=== PATIENT | male | born 1970 | race Caucasian/White ===

== ENCOUNTER 2024-04-30 09:05 | Outpatient (CLI) | payer MEDICAID, OTHER | END 2024-04-30 23:59 | disposition critical access hospital (66) | LOC: EMS 09:05 | DX: R46.4 Slowness and poor responsiveness (principal); R53.83 Other fatigue; R45.1 Restlessness and agitation | CPT/HCPCS: A0425; A0427; A0999 ==

== ENCOUNTER 2024-04-30 09:29 | Emergency (ER) | payer BC, MEDICAID, OTHER ==
[2024-04-30] MEDS ORDERED: DROPERIDOL 5 MG/2 ML VIAL IM STA (09:40)
[2024-04-30] MEDS: DROPERIDOL 5 MG/2 ML VIAL IM STA (09:44)
[2024-04-30] MEDS: LORazepam 2 MG/ML VIAL IM STA (09:44)
[2024-04-30] MEDS: LORazepam 2 MG/ML VIAL IVP STA (09:55)
[2024-04-30] MEDS: DROPERIDOL 5 MG/2 ML VIAL IVP STA (09:55)
[2024-04-30 10:23] LABS: BASOPHILS % (AUTO) 0.1 %; HGB - HEMOGLOBIN 15.9 g/dL (14.0-18.0); LYMPHOCYTES # (AUTO) 0.8 10^3/uL (1.5-3.5); LYMPHOCYTES % (AUTO) 11.7 %; MEAN CORPUSCULAR HGB CONC 33.8 g/dL (32.0-36.0); MEAN CORPUSCULAR VOLUME 91.6 fL (80.0-94.0); MEAN PLATELET VOLUME 9.6 fL (7.4-11.4); MONOCYTES # (AUTO) 0.3 10^3/uL (0.0-1.0); MONOCYTES % (AUTO) 4.6 %; NEUTROPHILS % (AUTO) 83.2 %; PLT - PLATELET COUNT 251 10^3/uL (130-450); RED BLOOD COUNT 5.13 10^6/uL (4.70-6.10); RED CELL DISTRIBUTION WIDTH 12.8 % (12.0-15.0); WHITE BLOOD COUNT 7.2 x10^3/uL (4.8-10.8)
[2024-04-30 10:41] LABS: ALBUMIN 4.5 g/dL (3.2-5.5); ALBUMIN/GLOBULIN RATIO 1.7 (1.0-2.2); ALKALINE PHOSPHATASE 105 IU/L (42-121); ALT ALANINE AMINOTRANSFERASE 20 IU/L (10-60); AST ASPARTATE AMINOTRANSFERASE 20 IU/L (10-42); BILIRUBIN,TOTAL 0.6 mg/dL (0.2-1.0); BUN - BLOOD UREA NITROGEN 16 mg/dL (6-20); CALCIUM 9.9 mg/dL (8.5-10.3); CARBON DIOXIDE - CO2 26 mmol/L (21-32); CHLORIDE 107 mmol/L (101-111); ETOH - ETHANOL < 10.0 mg/dL; GFR - MDRD 78 (>89); GLUCOSE 174 mg/dL (74-104); LIPASE 27 U/L (11-82); POTASSIUM 4.2 mmol/L (3.5-4.5); SODIUM 142 mmol/L (135-145); TOTAL PROTEIN 7.2 g/dL (6.4-8.9)
[2024-04-30 10:49] LABS: AMPHETAMINE SCREEN,URINE NEGATIVE (NEGATIVE); BARBITURATE SCREEN,UR NEGATIVE (NEGATIVE); BENZODIAZEPINES SCREEN, URINE NEGATIVE (NEGATIVE); BUPRENORPHINE SCREEN, URINE NEGATIVE (NEGATIVE); COCAINE SCREEN URINE POSITIVE (NEGATIVE); METHADONE SCREEN, URINE NEGATIVE (NEGATIVE); METHAMPHETAMINES SCREEN, URINE POSITIVE (NEGATIVE); OPIATE SCREEN, URINE NEGATIVE (NEGATIVE); OXYCODONE SCREEN, URINE NEGATIVE (NEGATIVE); THC CANNABINOID SCREEN, URINE POSITIVE (NEGATIVE); TRICYCLIC ANTIDEPRESSANT,URINE NEGATIVE (NEGATIVE)
--- NOTE | 2024-04-30 11:41 | CT Report ---
PROCEDURE: Head WO INDICATIONS: delirium/ALOC TECHNIQUE: Noncontrast 4.5 mm thick angled axial sections acquired from the foramen magnum to the vertex. For r adiation dose reduction, the following was used: automated exposure control, adjustment of mA and/or kV according to patient size. COMPARISON: None. FINDINGS: Image quality: Motion degraded CSF spaces: Basal cisterns are patent. Lateral ventricles are symmetric. Volume: Mild volume loss Brain: No large hematoma. No gross loss of nassar-white differentiation Craniofacial structures: No significant paranasal sinus opacity IMPRESSION: There is significant motion artifact. There is no large hematoma or obvious brain tissue herniation. Reviewed by: Naga Waller MD on 04/30/2024 11:39 AM PDT Approved by: Naga Waller MD on 04/30/2024 11:39 AM PDT Station ID: [id number]
[2024-04-30] MEDS: ONDANSETRON 4 MG/2 ML VIAL IVP STA (12:11)
[2024-04-30] MEDS: SODIUM CHLORIDE 0.9% 1,000 ML IV STA (12:11)
--- NOTE | 2024-04-30 15:01 | ED Physician Documentation ---
ED Addendum - Addendum Addendum: 04/30/24 14:[address] Chawla at 3pm shift change. See her note for H/p. Briefly was unresponsive and now improving with ++UDS. He is sleeping now, but easily arousable, but can only answer 1-2 questions before falling back asleep. I was able to ask him if he wants to see [employer] and he declines. 04/30/24 17:50 Still somnolent but easier to arouse at this point. Supportive sister at the bedside who intends to take him home with her. I discussed with patient my intention to have the nurse get him up and ambulate him to see how steady he was and he says he does not want to. 04/30/24 18:08 He was ambulatory without issue per the RN counseled not to use drugs. Disposition: Discharged home Condition: Stable Diagnosis: 1. Drug overdose 2. Drug-induced delirium
--- NOTE | 2024-04-30 15:13 | ED Physician Documentation ---
History of Present Illness - Stated complaint Stated Complaint: ALOC - Chief complaint Chief Complaint: Neuro - History obtained from History obtained from: EMS - Additonal information Additional information: The patient is brought to the emergency department by EMS for chief complaint of altered level of consciousness. The patient was found by his roommate this morning to be unresponsive and called EMS. When EMS arrived, the patient was indeed unresponsive, though he was hemodynamically stable. They gave Narcan and the patient did awaken but was not alert or conversant. Medics state the ana ent did begin vomiting after receiving Narcan, but this was right before arriving here so they have not given him anything for this. They state that they remain without able to offer any information with regard to what the patient might of taken or why he might be altered. The patient has not been to our ED since 2015. He is unable to offer any information at this time. PD PAST MEDICAL HISTORY - Past Medical History Psych: Depression, Anxiety, ADD/ADHD - Past Surgical History Past Surgical History: Yes - Present Medications Home Medications: Ambulatory Orders Medication Instructions Recorded Confirmed ALPRAZolam [Alprazolam] 0.25 tab PO 01/03/15 01/03/15 DULoxetine [Cymbalta] 1 cap PO DAILY 01/03/15 01/03/15 Dextroamphetamine/Amphetamine 10 mg PO DAILY 01/03/15 01/03/15 [Adderall Xr 10 mg Capsule] - Allergies Allergies/Adverse Reactions: Allergies Allergy/AdvReac Type Severity Reaction Status Date / Time No Known Drug Allergies Allergy Verified 01/03/15 16:17 - Social History Does the pt smoke?: No Smoking Status: Never smoker Does the pt drink ETOH?: Yes Does the pt have substance abuse?: No - Immunizations Immunizations are current?: Yes PD ED PE NORMAL - Vitals Vital signs reviewed: Yes - General General: Well developed/nourished, Other (Patient appears delirious.) - HEENT HEENT: Atraumatic, PERRL, Moist mucous membranes - Neck Neck: Supple, no meningeal sign - Cardiac Cardiac: RRR, No murmur - Respiratory Respiratory: No respiratory distress, Clear bilaterally - Abdomen Abdomen: Soft, Non distended - Derm Derm: Normal color, Warm and dry, No rash - Extremities Extremities: No deformity, No edema - Neuro Neuro: Other (Moving all 4 extremities. Patient is somewhat agitated.) Results - Vitals Vitals: Vital Signs - 24 hr 04/30/24 04/30/24 04/30/24 09:34 11:44 14:37 Temperature 36.6 C Heart Rate 66 61 60 Respiratory 20 18 18 Rate Blood Pressure 157/76 H 163/105 H 130/58 L O2 Saturation 94 95 93 Oxygen O2 Source Room air - Labs Labs: Laboratory Tests 04/30/24 04/30/24 04/30/24 10:17 10:17 10:30 WBC 7.2 RBC 5.13 Hgb 15.9 Hct 47.0 MCV 91.6 MCH 31.0 MCHC 33.8 RDW 12.8 Plt Count 251 MPV 9.6 Neut # (Auto) 6.0 Lymph # (Auto) 0.8 L [place] # (Auto) 0.3 Eos # (Auto) 0.0 Baso # (Auto) 0.0 Absolute Nucleated RBC 0.00 Nucleated RBC % 0.0 Sodium 142 Potassium 4.2 Chloride 107 Carbon Dioxide 26 Anion Gap 9.0 BUN 16 Creatinine 1.0 Estimated GFR (MDRD) 78 L Glucose 174 H Calcium 9.9 Total Bilirubin 0.6 AST 20 ALT 20 Alkaline Phosphatase 105 Total Protein 7.2 Albumin 4.5 Globulin 2.7 Albumin/Globulin Ratio 1.7 Lipase 27 Urine Opiates Screen NEGATIVE Ur Buprenorphine Scrn NEGATIVE Ur Oxycodone Screen NEGATIVE Urine Methadone Screen NEGATIVE Ur Barbiturates Screen NEGATIVE Ur Tricyclics Screen NEGATIVE Ur Phencyclidine Scrn NEGATIVE Ur Amphetamine Screen NEGATIVE U Methamphetamines Scrn POSITIVE H U Benzodiazepines Scrn NEGATIVE Urine Cocaine Screen POSITIVE H U Cannabinoids Screen POSITIVE H Ur Drug Screen Comment CUTOFF CONC BELOW: Ethyl Alcohol < 10.0 PD Medical Decision Making - ED course Complexity details: reviewed old records, reviewed results, re-evaluated patient, considered differential, d/w family ED course: The patient had altered mental status on arrival. He was vomiting, and so he was given a dose of droperidol and of Ativan to blunt some of the Stimulation from receiving Narcan. The patient did appear much more comfortable after this. He was not able to offer any information and it was not exactly clear what had happened, so a broad workup was initiated. The patient had laboratory studies performed which were unremarkable, including normal blood sugar. He was sent for CT scan of the head which was also unremarkable. His urine drug screen was positive for cocaine, methamphetamines, and marijuana. His alcohol level was negative. The patient was given IV fluids and a dose of Zofran after vomiting a couple of hours after arrival. His daughter was present and I was able to speak with her at length. She stated that the patient had been having "some trouble" since the knee surgery a couple of months ago, but that she was not aware of him taking any drugs besides "alcohol and pills". 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 The daughter was completely unaware of what might of happened in the last couple of days since she last saw him. However, she states when she saw them a couple days ago he seem like his normal self, talking and interacting with her children. The alexander matute did steadily improve throughout his stay in the emergency department and was hemodynamically stable. I went to reevaluate him and the patient was arousable and able to give short, but appropriate, answers to questions in a coherent manner. The patient was still wanting to sleep, but was much improved from when he arrived. The plan is that this patient will likely go home. He does not have family here at this time and we are attempting to get a hold of them. I have signed the patient out to the oncoming emergency physician, pending some clinical improvement and final decision to discharge. Departure - Departure Clinical Impression: Drug-induced delirium Altered mental status Qualifiers: Altered mental status type: delirium Qualified Code(s): R41.0 - Disorientation, unspecified Condition: Stable
[2024-04-30 18:08] VITALS: BP 134/66
[2024-04-30 18:27] VITALS: O2SAT 97
== END 2024-04-30 18:23 | disposition home or self-care (01) ==
LOC: EDUNIT# → ED 09:29
DX: F15.921 Other stimulant use, unspecified with intoxication delirium (principal); F12.921 Cannabis use, unspecified with intoxication delirium; F14.90 Cocaine use, unspecified, uncomplicated; R41.0 Disorientation, unspecified
CPT/HCPCS: 36415; 70450; 80053; 80306; 82077; 83690; 85025; 96361; 96374; 96375; 99284; J2060